=== PATIENT | male | born 1960 | race Caucasian/White ===

== ENCOUNTER 2022-05-02 13:36 | Inpatient (IN) | payer MEDICAID ==
[~2022-05-02] VITALS: Ht 175.3 cm; Wt 83.9 kg
[2022-05-02 13:40] VITALS: BP_SYST 132
[2022-05-02 14:52] LABS: BASOPHILS # (AUTO) 0.1 K/uL (0.0-0.2); BASOPHILS % (AUTO) 0.9 % (0.0-2.0); EOSINOPHILS % (AUTO) 0.6 % (0.0-4.0); HEMATOCRIT 42.1 % (36-54); HEMOGLOBIN 14.5 g/dL (14.0-18.0); LYMPHOCYTES # (AUTO) 1.3 K/uL (1.0-5.5); MEAN CORPUSCULAR HEMOGLOBIN 34 pg (27-31); MEAN CORPUSCULAR HGB CONC 35 % (32-36); MEAN CORPUSCULAR VOLUME 99 fL (79.0-98.0); MONOCYTES # (AUTO) 0.3 K/uL (0.0-1.0); MONOCYTES % (AUTO) 5.2 % (1.7-9.3); NEUTROPHILS # (AUTO) 4.1 K/uL (1.8-7.7); NEUTROPHILS % (AUTO) 70.3 % (40.0-70.0); PLATELET COUNT (AUTO) 186 K/uL (130-430); RED BLOOD CELL COUNT(AUTO) 4.24 MIL/uL (4.2-6.2); RED CELL DISTRIBUTION WIDTH 15.3 % (9.0-15.0); WHITE BLOOD COUNT (AUTO) 5.8 K/uL (4.8-10.8)
[2022-05-02 15:04] LABS: ANION GAP 25 (5-15); CALCIUM 8.2 mg/dL (8.4-11.0); CHLORIDE 94 mmol/L (98-107); CREATININE 1.16 mg/dL (0.55-1.30); GLUCOSE 68 mg/dL (70-99); SODIUM SERUM 139 mmol/L (136-145); UREA NITROGEN, BLOOD 15 mg/dL (8-21)
[2022-05-02 15:08] LABS: GFR AFRICAN AMERICAN 82 mL/min (>90)
[2022-05-02 15:23] LABS: ALANINE AMINOTRANSFERASE 64 U/L (12-78); ALBUMIN 3.7 g/dL (3.4-4.8); AMYLASE 34 U/L (0-100); ASPARTATE AMINOTRANSFERASE 157 U/L (10-37); LIPASE 114 U/L (73-393); TOTAL BILIRUBIN 1.5 mg/dL (0.0-1.0)
[2022-05-02 15:24] LABS: INR 1.2 (0.80-1.20); PROTHROMBIN TIME 11.6 SECS (9.5-12.5)
[2022-05-02 15:25] LABS: ALCOHOL, BLOOD 473 mg/dL (<10)
[2022-05-02 15:45] LABS: ACETONE, SERUM NEGATIVE (NEGATIVE)
[2022-05-02] MEDS ORDERED: NACL 0.9% 3,000 ML IV ONE (18:45)
[2022-05-02] MEDS ORDERED: chlordiazePOXIDE HCL 25 MG CAPSULE PO PRN (22:00)
[2022-05-02] MEDS ORDERED: LORazepam 2 MG/ML VIAL IVP PRN (22:00)
[2022-05-02] MEDS ORDERED: cloNIDine HCL 0.1 MG TABLET PO PRN (22:00)
[2022-05-02] MEDS ORDERED: FOLIC ACID 1 MG, THIAMINE HCL 100 MG, MAGNESIUM SULFATE 1 GM, MVI 10 ML in NACL 0.9% 1,... IV ONE (22:00)
[2022-05-02] MEDS ORDERED: THIAMINE HCL 100 MG/ML VIAL ONE (22:49)
[2022-05-02] MEDS ORDERED: MVI 10 ML VIAL IV ONE (22:49)
[2022-05-02] MEDS ORDERED: MAGNESIUM SULFATE 1 GM/2 ML VIAL ONE (22:49)
[2022-05-02] MEDS ORDERED: FOLIC ACID 5 MG/ML VIAL IV ONE (22:49)
[2022-05-02 23:36] LABS: BILIRUBIN,URINE 1+ (NEGATIVE); BLOOD, URINE 2+ (NEGATIVE); COLOR,URINE YELLOW (YELLOW); GLUCOSE,URINE NEGATIVE (NEGATIVE); KETONES,URINE 1+ (NEGATIVE); LEUKOCYTE ESTERASE ,URINE NEGATIVE (NEGATIVE); NITRITE, URINE NEGATIVE (NEGATIVE); PROTEIN URINE 2+ (NEGATIVE)
[2022-05-02 23:39] LABS: CLARITY/URINE CLOUDY (CLEAR)
[2022-05-02 23:49] LABS: BACTERIA,URINE FEW /HPF (None Seen); FINE GRANULAR CASTS,URINE 0-10 /LPF (None Seen); WBC,URINE 0-3 /HPF (0-3)
[2022-05-03] VITALS (7 sets, daily range): BP systolic 120–140
[2022-05-03] MEDS: NACL 0.9% 1,000 ML IV SCH ×3 (05:31→18:20)
[2022-05-03] MEDS: PANTOPRAZOLE SODIUM 40 MG/VIAL (PROTONIX) IVP SCH (08:14)
[2022-05-03] MEDS: ONDANSETRON HCL 4 MG/2 ML VIAL IVP PRN (13:09)
[2022-05-04] VITALS: BP_SYST 120
[2022-05-04 06:32] VITALS: BP_SYST 122
[2022-05-04] MEDS: NACL 0.9% 1,000 ML IV SCH (06:36)
[2022-05-04 08:00] VITALS: BP_SYST 121
[2022-05-04] MEDS: PANTOPRAZOLE SODIUM 40 MG/VIAL (PROTONIX) IVP SCH (08:19)
[2022-05-04] MEDS: ONDANSETRON HCL 4 MG/2 ML VIAL IVP PRN (08:19)
[2022-05-04 11:37] VITALS: BP_SYST 134
== END 2022-05-04 11:50 | disposition left against medical advice (07) | DRG 52 ==
LOC: SED 13:36 → EDBD 13:36 → STU 21:50
PROVIDERS: ADMIT Family Medicine; ATTEND Family Medicine
DX: G93.41 Metabolic encephalopathy (principal); E87.2 Acidosis; R19.7 Diarrhea, unspecified; F10.229 Alcohol dependence with intoxication, unspecified; Z20.822 Contact with and (suspected) exposure to COVID-19; Y90.9 Presence of alcohol in blood, level not specified
CPT/HCPCS: 36415; 70450-TC; 71045; 76376; 80053; 81000; 82009; 82140; 82150; 83605; 83690; 85025; 85610-TC; 85730-TC; 99285; C9113; G0378; G0482; J2405; J3411; J3475; J3490; J7030